=== PATIENT | male | born 1955 | race Two or more races ===

== ENCOUNTER 2024-04-22 10:02 | Emergency (ER) | payer MEDICARE, OTHER ==
[~2024-04-22] VITALS: Ht 157.5 cm; Wt 39.9 kg
[2024-04-22] MEDS ORDERED: DIATR MEGLU/DIATRIZOATE SODIUM 30 ML BOTTLE (GASTROGRAPHIN) ONE (11:55)
[2024-04-22] MEDS ORDERED: oxyCODONE/APAP (5/325 MG) 1 UDTAB TABLET ONE (12:59)
[2024-04-22] MEDS: oxyCODONE/APAP (5/325 MG) 1 UDTAB TABLET GT ONE (13:07)
[2024-04-22 14:42] VITALS: BP 92/57; TEMP 98.2; O2SAT 100
== END 2024-04-22 14:43 ==
LOC: ER 10:16
DX: K94.23 Gastrostomy malfunction (principal); N18.9 Chronic kidney disease, unspecified
CPT/HCPCS: 99284; 43762; 74018; Q9963

== ENCOUNTER 2024-12-10 13:16 | Inpatient (IN) | payer MEDICARE, OTHER ==
[~2024-12-10] VITALS: Ht 157.5 cm; Wt 45.8 kg
[2024-12-10] MEDS: PIPERACILLIN /TAZOBACTAM 3.375 G in IV D5W 50 ML IV ONE (14:00)
[2024-12-10 14:07] LABS: PLATELET COUNT (AUTO) 338 K/uL (150-450); RED BLOOD CELL COUNT(AUTO) 2.39 MIL/uL (4.5-6.0); RED CELL DISTRIBUTION WIDTH 15.7 % (11.5-15.0); WHITE BLOOD COUNT (AUTO) 7.6 K/uL (4.3-11.0)
[2024-12-10 14:10] LABS: ASPARTATE AMINOTRANSFERASE 14 U/L (15-37); CALCIUM, SERUM 8.7 mg/dL (8.5-10.1); CREATININE 1.7 mg/dL (0.6-1.3); LACTIC ACID 0.8 mmol/L (0.4-2.0); SODIUM SERUM 139 mmol/L (136-145); TOTAL PROTEIN, SERUM 6.5 g/dL (6.4-8.2); UREA NITROGEN, BLOOD 24 mg/dL (7-18)
[2024-12-10] MEDS ORDERED: OXYC15TA2 PO (14:13)
[2024-12-10] MEDS ORDERED: VENL37.55 PO (14:13)
[2024-12-10] MEDS ORDERED: ACET325T53 PO (14:13)
[2024-12-10] MEDS ORDERED: MORP30TA PO (14:13)
[2024-12-10] MEDS ORDERED: CHOL100043 PO (14:13)
[2024-12-10] MEDS ORDERED: MELA3TAB41 PO (14:13)
[2024-12-10] MEDS ORDERED: THIA100T74 PO (14:13)
[2024-12-10] MEDS ORDERED: CALC-494 PO (14:13)
[2024-12-10] MEDS ORDERED: IPRA3AMP23 IH (14:13)
[2024-12-10] MEDS ORDERED: LIDO28.310 TP (14:13)
[2024-12-10] MEDS ORDERED: LIDO20SO13 PO (14:13)
[2024-12-10] MEDS ORDERED: POLY17PO4 PO (14:13)
[2024-12-10] MEDS ORDERED: LIDO1ADH82 TP (14:13)
[2024-12-10] MEDS ORDERED: AMIN30LI2 PO (14:13)
[2024-12-10] MEDS ORDERED: OMEP20CA15 PO (14:13)
[2024-12-10] MEDS ORDERED: MULT-213 PO (14:13)
[2024-12-10] MEDS ORDERED: BOOST VHC PO (14:13)
[2024-12-10] MEDS ORDERED: LACT10SO3 PO (14:13)
[2024-12-10] MEDS ORDERED: GABA600T12 PO (14:13)
[2024-12-10] MEDS ORDERED: MEGE400O6 PO (14:13)
[2024-12-10] MEDS: VANCOMYCIN 1 GM in IV D5W 250 ML IV ONE (14:20)
[2024-12-10 14:21] LABS: INR 1.08 (0.91-1.10)
[2024-12-10] MEDS: IV NS 0.9% 1,000 ML BAG IV ONE (14:57)
[2024-12-10] MEDS ORDERED: ALBUMIN 25% 100 ML IV ONE (16:25)
[2024-12-10] MEDS: ALBUMIN 25% 12.5 GM/50 ML BOTTLE IV ONE (16:30)
[2024-12-10] MEDS ORDERED: MAG HYDROX/AL HYDROX/SIMETH 30 ML UDC PO PRN (17:00)
[2024-12-10] MEDS ORDERED: ONDANSETRON HCL/PF 4 MG/2 ML VIAL IVP PRN (17:00)
[2024-12-10] MEDS ORDERED: ACETAMINOPHEN 325 MG TABLET PO PRN ×2 (17:00→17:30)
[2024-12-10] MEDS ORDERED: LIDOCAINE VISCOUS 2% UD 15 ML UDC PO PRN (17:30)
[2024-12-10] MEDS ORDERED: DOSING PER PHARMACY-VANCOMYCIN IV XX PRN (18:00)
[2024-12-10] MEDS ORDERED: DOSING PER PHARMACY-ZOSYN IV 1 EA EA XX PRN (18:00)
[2024-12-10] MEDS: IV NS 0.9% 1,000 ML IV PRN (18:57)
[2024-12-10] MEDS: GABAPENTIN 300 MG CAPSULE PO SCH (18:58)
[2024-12-10] MEDS: LACTULOSE 10 G/15 ML UDC (PYXIS) PO SCH (18:58)
[2024-12-10 19:00] VITALS: BP 118/61; TEMP 98.4; O2SAT 98
[2024-12-10] MEDS ORDERED: ALBUTEROL FS 2.5 MG/0.5 ML VIAL.NEB NEB PRN (19:00)
[2024-12-10] MEDS ORDERED: LIDOCAINE 5% OINT 35.44 GM TUBE TP PRN (19:00)
[2024-12-10] MEDS ORDERED: IPRATROPIUM NEB FS 0.5 MG/2.5 ML AMPUL.NEB NEB PRN (19:00)
[2024-12-10] MEDS: ENOXAPARIN SODIUM 30 MG/0.3 ML DISP.SYRIN SQ SCH (19:01)
[2024-12-10 20:00] VITALS: BP 95/48; TEMP 98.6; O2SAT 100
[2024-12-11 04:00] VITALS: BP 112/56; TEMP 98.1; O2SAT 99
[2024-12-11 06:56] LABS: PLATELET COUNT (AUTO) 337 K/uL (150-450); RED BLOOD CELL COUNT(AUTO) 2.38 MIL/uL (4.5-6.0); RED CELL DISTRIBUTION WIDTH 15.8 % (11.5-15.0); WHITE BLOOD COUNT (AUTO) 5.4 K/uL (4.3-11.0)
[2024-12-11 07:17] LABS: CALCIUM, SERUM 8.3 mg/dL (8.5-10.1); CREATININE 1.4 mg/dL (0.6-1.3); PHOSPHORUS 2.2 mg/dL (2.5-4.9); SODIUM SERUM 141.0 mmol/L (136-145); UREA NITROGEN, BLOOD 16.0 mg/dL (7-18)
[2024-12-11] MEDS ORDERED: PANTOPRAZOLE 40 MG TABLET.DR PO SCH (07:30)
[2024-12-11] MEDS: PANTOPRAZOLE 40 MG TABLET.DR PO SCH (07:30)
[2024-12-11] MEDS ORDERED: BOOST FOOD- BERRY 237 ML BOX PO SCH (08:00)
[2024-12-11 08:16] VITALS: BP_SYST 105; BP_SYST 119; BP_DIAS 56; BP_DIAS 65; TEMP 97.7; O2SAT 100; O2SAT 94
[2024-12-11] MEDS: VENLAFAXINE XR 37.5 MG CAP.SR.24H PO SCH (08:50)
[2024-12-11] MEDS: PROSOURCE / PROSTAT (PYXIS) 30 ML UDC PO SCH (08:51)
[2024-12-11] MEDS: CALCIUM CARBONATE (1250) 500 MG TABLET PO SCH (08:51)
[2024-12-11] MEDS: POLYETHYLENE GLYCOL 3350 17 GM POWD.PACK PO SCH (08:51)
[2024-12-11] MEDS: MULTIVITAMINS,THERAGRAN 1 UDTAB TABLET PO SCH (08:51)
[2024-12-11] MEDS: MEGESTROL ACETATE SUSP 400 MG/10 ML UDC PO SCH (08:51)
[2024-12-11] MEDS: CHOLECALCIFEROL 1,000 UNIT TABLET (VIT D3) PO SCH (08:52)
[2024-12-11] MEDS: LIDOCAINE 5% (PATCH) 1 EA PATCH TP SCH (08:52)
[2024-12-11] MEDS: THIAMINE HCL 100 MG TABLET PO SCH (08:52)
[2024-12-11] MEDS: ENSURE ENLIVE 237 ML LIQUID (VANILLA) PO SCH (09:00)
[2024-12-11] MEDS ORDERED: LIDOCAINE TP SCH (09:00)
[2024-12-11] MEDS: POTASSIUM CHLORIDE 20 MEQ TAB.PRT.SR PO SCH (10:08)
[2024-12-11 12:00] VITALS: BP 106/57; TEMP 98.1; O2SAT 95
[2024-12-11 12:47] LABS: APPEARANCE,URINE CLEAR (CLEAR); BLOOD, URINE NEGATIVE Ery/uL (NEGATIVE); LEUKOCYTE ESTERASE ,URINE NEGATIVE (NEGATIVE); NITRITE, URINE NEGATIVE (NEGATIVE); UGLUCOSE NEGATIVE (NEGATIVE)
[2024-12-11 12:52] LABS: ADD URINE CULTURE NO; SQUAMOUS EPITHELIAL CELL,UR None Seen /HPF (None Seen)
[2024-12-11 12:53] LABS: CREATININE, URINE 81.8 MG/DL (30.0-125.0); URINE SODIUM, RANDOM 113.0 mmol/l (40-220); URINE TOTAL PROTEIN 55.8 mg/dL (0-11.9)
[2024-12-11] MEDS ORDERED: VANCOMYCIN 750 MG in IV D5W 250 ML IV SCH (13:00)
[2024-12-11] MEDS: VANCOMYCIN 1 GM in IV D5W 250ml IV SCH (13:00)
[2024-12-11 14:39] LABS: EOSINOPHIL,URINE None Seen
[2024-12-11 16:16] VITALS: BP 114/63; TEMP 97.7; O2SAT 95
[2024-12-11] MEDS: K PHOS NEUTRAL 250 MG TABLET PO ONE (16:49)
[2024-12-11] MEDS: PIPERACILLIN /TAZOBACTAM 3.375 G in IV D5W 50 ML IV SCH (18:33)
[2024-12-11 20:00] VITALS: BP_SYST 113; BP_SYST 114; BP_DIAS 60; BP_DIAS 63; TEMP 97.5; TEMP 97.7; O2SAT 95; O2SAT 99
[2024-12-12 06:53] LABS: PLATELET COUNT (AUTO) 344 K/uL (150-450); RED BLOOD CELL COUNT(AUTO) 2.41 MIL/uL (4.5-6.0); RED CELL DISTRIBUTION WIDTH 15.6 % (11.5-15.0); WHITE BLOOD COUNT (AUTO) 4.7 K/uL (4.3-11.0)
[2024-12-12 07:29] LABS: ASPARTATE AMINOTRANSFERASE 12 U/L (15-37); CALCIUM, SERUM 8.2 mg/dL (8.5-10.1); CREATININE 1.3 mg/dL (0.6-1.3); PHOSPHORUS 2.6 mg/dL (2.5-4.9); SODIUM SERUM 142 mmol/L (136-145); TOTAL PROTEIN, SERUM 5.7 g/dL (6.4-8.2); UREA NITROGEN, BLOOD 16 mg/dL (7-18)
[2024-12-12 07:33] LABS: CREATINE KINASE, TOTAL 45 U/L (39-308)
[2024-12-12 08:00] VITALS: BP 102/52; TEMP 98.4; O2SAT 94
[2024-12-12] MEDS: oxyCODONE IR immediate release 5 MG TABLET PO PRN (08:29)
[2024-12-12] MEDS: POTASSIUM CHLORIDE 20 MEQ TAB.PRT.SR PO SCH (09:36)
[2024-12-12 16:00] VITALS: BP 105/59; TEMP 98.4; O2SAT 98
[2024-12-12] MEDS: MORPHINE SULFATE INJ 4 MG/ML DISP.SYRIN IV ONE (16:40)
[2024-12-12 20:00] VITALS: BP 111/64; TEMP 98.8; O2SAT 98
[2024-12-12] MEDS: HYDROMORPHONE INJ 2 MG/ML DISP.SYRIN IV ONE (21:16)
[2024-12-13 05:08] LABS: PTH, INTACT 17 pg/mL (15-65)
[2024-12-13 06:23] LABS: PLATELET COUNT (AUTO) 319 K/uL (150-450); RED BLOOD CELL COUNT(AUTO) 2.27 MIL/uL (4.5-6.0); RED CELL DISTRIBUTION WIDTH 15.4 % (11.5-15.0); WHITE BLOOD COUNT (AUTO) 3.8 K/uL (4.3-11.0)
[2024-12-13 06:31] LABS: CALCIUM, SERUM 8.1 mg/dL (8.5-10.1); CREATININE 1.4 mg/dL (0.6-1.3); PHOSPHORUS 2.5 mg/dL (2.5-4.9); SODIUM SERUM 139.0 mmol/L (136-145); UREA NITROGEN, BLOOD 16.0 mg/dL (7-18)
[2024-12-13 08:00] VITALS: BP 96/58; TEMP 98.2; O2SAT 97
[2024-12-13] MEDS: POTASSIUM CHLORIDE 20 MEQ TAB.PRT.SR PO ONE ×2 (09:10→11:26)
[2024-12-13] MEDS ORDERED: CEFE2FRO IV (12:51)
== END 2024-12-13 15:30 | DRG 640 ==
LOC: ER 13:20 → MED 17:15
PROVIDERS: ADMIT Nurse Practitioner Family; ATTEND Nurse Practitioner Family
DX: E86.0 Dehydration (principal); E43 Unspecified severe protein-calorie malnutrition; J15.9 Unspecified bacterial pneumonia; G93.41 Metabolic encephalopathy; N17.0 Acute kidney failure with tubular necrosis; E44.1 Mild protein-calorie malnutrition; F33.9 Major depressive disorder, recurrent, unspecified; D84.9 Immunodeficiency, unspecified; R62.7 Adult failure to thrive; E88.09 Other disorders of plasma-protein metabolism, not elsewhere classified; R13.10 Dysphagia, unspecified; K12.30 Oral mucositis (ulcerative), unspecified; D64.9 Anemia, unspecified; E87.6 Hypokalemia; N18.9 Chronic kidney disease, unspecified; Z79.51 Long term (current) use of inhaled steroids; C10.9 Malignant neoplasm of oropharynx, unspecified; Z79.899 Other long term (current) drug therapy; Y95 Nosocomial condition; E86.9 Volume depletion, unspecified; M89.8X9 Other specified disorders of bone, unspecified site; Z87.891 Personal history of nicotine dependence
CPT/HCPCS: 36415; 70450-TC; 71045-TC; 71250-TC; 76770-TC; 80048-TC; 80053-TC; 80076-TC; 81001; 82550-TC; 82570-TC; 83605-TC; 83735-TC; 83970; 84100-TC; 84155; 84165; 84300-TC; 84484-TC; 85025-TC; 85730-TC; 87040-TC; 92526; 92611; A4223; G0378; J1171; J1650; J2270; J2543; J3373; J3374; J7030; J7050; J7060; P9047